=== PATIENT | male | born 1955 | race American Indian/Alaskan Native ===

== ENCOUNTER 2018-07-24 17:32 | Emergency (ER) | payer SELFPAY ==
[2018-07-24 17:32] VITALS: BMI 20.8
[2018-07-24 18:10] VITALS: BP 144/82; PULSE 88; RESP 16; TEMP 97.2; O2SAT 98
--- NOTE | 2018-07-24 18:47 | ED PDOC ---
HPI: General Adult Time Seen by Provider: 07/24/18 18:44 Chief Complaint (Nursing): Abnormal Skin Integrity Chief Complaint (Provider): rash History Per: Patient (62 y/o male undomiciled here with ongoing rash on and off improved with cream. Patient denies any pruiritis currently.) Past Medical History Reviewed: Historical Data, Nursing Documentation, Vital Signs Vital Signs: Last Vital Signs Temp 97.2 F L 07/24/18 18:08 Pulse 88 07/24/18 18:08 Resp 16 07/24/18 18:08 BP 144/82 07/24/18 18:08 Pulse Ox 98 07/24/18 18:08 - Medical History PMH: Denies: Depression - Family History Family History: States: No Known Family Hx - Home Medications Home Medications: Ambulatory Orders Medication Instructions Recorded hydrOXYzine HCl [Atarax] 25 mg PO Q8H #20 tab 10/31/14 predniSONE [predniSONE Tab] 20 mg PO BID #9 tab 10/31/14 - Allergies Allergies/Adverse Reactions: Allergies Allergy/AdvReac Type Severity Reaction Status Date / Time No Known Allergies Allergy Verified 07/24/18 18:08 Review of Systems ROS Statement: Except As Marked, All Systems Reviewed And Found Negative Physical Exam - Reviewed Nursing Documentation Reviewed: Yes Vital Signs Reviewed: Yes - Physical Exam Appears: Positive for: Well, Non-toxic, No Acute Distress Head Exam: Positive for: ATRAUMATIC, NORMAL INSPECTION, NORMOCEPHALIC Skin: Positive for: Warm. Negative for: Normal Color (No burrows noted. Multiple open lesions noted along upper arms.) Eye Exam: Positive for: EOMI, Normal appearance, PERRL ENT: Positive for: Normal ENT Inspection Neck: Positive for: Normal, Painless ROM Cardiovascular/Chest: Positive for: Regular Rate, Rhythm Respiratory: Positive for: CNT, Normal Breath Sounds Gastrointestinal/Abdominal: Positive for: Normal Exam, Soft Back: Positive for: Normal Inspection Extremity: Positive for: Normal ROM Neurological/Psych: Positive for: Awake, Alert, Normal Tone - ECG O2 Sat by Pulse Oximetry: 98 Disposition - Clinical Impression Clinical Impression: Rash - Patient ED Disposition Is Patient to be Admitted: No - Disposition Referrals: [facility] [Outside] Disposition: Routine/Home Disposition Time: 18:46 Condition: FAIR Instructions: Skin Rash (DC), Scabies (DC)
[2018-07-24] MEDS ORDERED: Permethrin 5% CREAM TOP ONE (19:00)
== END 2018-07-24 19:44 | disposition home or self-care (01) ==
LOC: H.ER 17:32
DX: R21 Rash and other nonspecific skin eruption (principal)